=== PATIENT | male | born 1985 | race Hispanic/Latino ===

== ENCOUNTER 2024-09-16 11:50 | Emergency (ER) | payer OTHER ==
[2024-09-16] MEDS ORDERED: Ketorolac Tromethamine 30 MG (1 mL) VIAL ONE (13:41)
[2024-09-16] MEDS ORDERED: Dexamethasone 10 MG/ML VIAL ONE (13:41)
[2024-09-16] MEDS ORDERED: Cyclobenzaprine 10 MG TAB ONE ×2 (13:41→13:59)
== END 2024-09-16 17:05 | disposition home or self-care (01) ==
LOC: ERS 11:50
DX: M48.061 Spinal stenosis, lumbar region without neurogenic claudication (principal); M51.26 Other intervertebral disc displacement, lumbar region
CPT/HCPCS: 72131; 76870; 93976; 96372; J1100; J1885